=== PATIENT | female | born 2005 | race Caucasian/White ===

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

== ENCOUNTER 2023-11-04 20:06 | Emergency (ER) | payer BC, SELFPAY ==
[2023-11-04 20:14] VITALS: BP 111/68; PULSE 88; RESP 19; TEMP 36.6; O2SAT 99
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
[2023-11-04 22:14] VITALS: BP 113/75; PULSE 77; RESP 18; TEMP 36.6; O2SAT 99
== END 2023-11-04 22:15 | disposition home or self-care (01) ==
PROVIDERS: Emergency Provider Physician Assistant; PCP Pediatrics
DX: L55.1 Sunburn of second degree (principal); F41.9 Anxiety disorder, unspecified; Z79.899 Other long term (current) drug therapy
CPT/HCPCS: 16020; 99282